=== PATIENT | female | born 1980 | race Two or more races ===

== ENCOUNTER 2022-02-04 13:56 | Emergency (ER) | payer SELFPAY ==
[~2022-02-04] VITALS: Ht 157.5 cm; Wt 54.5 kg
[2022-02-04 14:15] VITALS: BP 99/55
== END 2022-02-04 15:37 | disposition left against medical advice (07) ==
LOC: ER 14:12
DX: S70.362A Insect bite (nonvenomous), left thigh, initial encounter (principal); Z53.21 Procedure and treatment not carried out due to patient leaving prior to being seen by health care provider; W57.XXXA Bitten or stung by nonvenomous insect and other nonvenomous arthropods, initial encounter; Y93.89 Activity, other specified; Y92.89 Other specified places as the place of occurrence of the external cause; Y99.8 Other external cause status